=== PATIENT | female | born 1965 | race Caucasian/White ===

== ENCOUNTER 2017-08-20 12:57 | Emergency (ER) | payer BC ==
[2017-08-20 14:32] VITALS: BP 120/77
[2017-08-20] MEDS ORDERED: Lidocaine 2% PF * 5 ML VIAL INJ ONE (15:09)
[2017-08-20] MEDS ORDERED: Tetan/Diph/Pertus SYR(Tdap)* 0.5 ML SYR(BOOSTRIX) use SYR IM ONE (15:10)
--- NOTE | 2017-08-20 15:49 | UC ---
Laceration HPI - HPI Summary HPI Summary: Pt presents with laceration to left hand sustained earlier today when taking out the garbage. There was glass at the bottom that sliced her left palm. She is unsure when her last tetanus was. She applied pressure and came directly to . - History Of Current Complaint Chief Complaint: UCLaceration Stated Complaint: HAND LACERATION Time Seen by Provider: 08/20/17 15:10 Hx Obtained From: Patient Hx Last Menstrual Period: 07/09/18 Laceration Location: Hand Mechanism Of Injury: Sharp Trauma Onset/Duration: Sudden Onset Severity: Moderate Pain Intensity: 4 Pain Scale Used: 0-10 Numeric - Allergies/Home Medications Allergies/Adverse Reactions: Allergies Allergy/AdvReac Type Severity Reaction Status Date / Time No Known Allergies Allergy Verified 08/20/17 14:28 PMH/Surg Hx/FS Hx/Imm Hx Previously Healthy: Yes - Surgical History Surgical History: Yes Surgery Procedure, Year, and Place: SKIN CANCER (LEG, STOMACH, SHOULDER) - Family History Known Family History: Positive: Unknown - Social History Occupation: Employed Full-time Lives: With Family Alcohol Use: Occasionally Substance Use Type: None Smoking Status (MU): Never Smoked Tobacco - Immunization History Most Recent Tetanus Shot: Unknown Review of Systems Constitutional: Negative Skin: Other - Laceration to left hand Respiratory: Negative Cardiovascular: Negative Gastrointestinal: Negative Neurovascular: Negative Neurological: Negative Psychological: Negative All Other Systems Reviewed And Are Negative: Yes Physical Exam Triage Information Reviewed: Yes Appearance: Well-Appearing, No Pain Distress, Well-Nourished Vital Signs: Initial Vital Signs Temp 98.8 F 08/20/17 14:28 Pulse 69 08/20/17 14:28 Resp 18 08/20/17 14:28 BP 120/77 08/20/17 14:28 Pulse Ox 98 08/20/17 14:28 Vital Signs Reviewed: Yes Respiratory: Positive: Lungs clear, Normal breath sounds, No respiratory distress, No accessory muscle use Cardiovascular: Positive: RRR, No Murmur, Pulses Normal - Left radial and ulnar , Brisk Capillary Refill - Left hand and all fingers Musculoskeletal: Positive: Strength Intact - Left hand and all fingers, ROM Intact - Left hand and all fingers Neurological: Positive: Alert, Other: - Sensations intact left hand and all fingers Psychological: Positive: Age Appropriate Behavior Skin: Positive: Other - 2.0cm linear laceration to left thenar region. No tendon involvement. No FBs. Laceration Repair - Laceration Repair 1 Description: Linear Laceration Size After Repair: Length (cm) - 2.0 Type Injection: Local Anesthesia Used: 2.0% Lido Irrigation With Pressure Irrigation Device: Yes Closure Material: Sutures - Six 5-0 Closure Method: Single Layer Suture Of: Skin Suture Type: Nylon Laceration Course/Dx - Course/Dx Course Of Treatment: A time out was performed, witnessed, and signed. The area was irrigated with 100mL sterile saline. 3mL of 2% lidocaine without epi was administered and good anesthetization was achieved. An Iodine swab was used to cleanse the area. In the usual sterile fashion, SIX 5-0 nylon sutures were placed. The wound was bandaged with telfa and tegaderm. Pt tolerated procedure well. - Differential Dx - Laceration/Wound Provider Diagnoses: 2.0cm laceration to left thenar region hand Discharge - Discharge Plan Condition: Stable Disposition: HOME Patient Education Materials: Care For Your Stitches (DC), Laceration (DC) Referrals: Chris Cardona MD [Primary Care Provider] - Additional Instructions: If you develop a fever, shortness of breath, chest pain, new or worsening symptoms - please call your PCP or go to the ED. 1) Please keep the area bandaged, clean, dry, and intact for the next 24- 48hours. 2) If you develop a fever, colored or thick discharge, increased pain or swelling - please call your PCP or go to the ED. 3) Please return in 10-14 days to have your SIX sutures removed.
== END 2017-08-20 16:00 | disposition home or self-care (01) ==
LOC: UCEAST 12:57
DX: S61.412A Laceration without foreign body of left hand, initial encounter (principal); W25.XXXA Contact with sharp glass, initial encounter; Y93.E9 Activity, other interior property and clothing maintenance; Y92.9 Unspecified place or not applicable
CPT/HCPCS: 12002; 90471; 90715; 99211; G0463

== ENCOUNTER 2017-08-30 09:44 | Emergency (ER) | payer BC ==
[2017-08-30 09:55] VITALS: BP 126/72
--- NOTE | 2017-08-30 10:08 | UC ---
Laceration HPI - HPI Summary HPI Summary: Pt presents for suture removal. She was seen 10 days ago and six suture were placed by me in her left hand. Today site looks well healed with good approximation. She states that she had no issues - History Of Current Complaint Hx Obtained From: Patient Hx Last Menstrual Period: NA Laceration Location: Hand Pain Intensity: 0 <Thomas Moreno - Last Filed: 08/30/17 10:16> <Tracey Liu - Last Filed: 08/30/17 10:49> - History Of Current Complaint Chief Complaint: UCLaceration Stated Complaint: STITCH REMOVAL Time Seen by Provider: 08/30/17 10:01 - Allergies/Home Medications Allergies/Adverse Reactions: Allergies Allergy/AdvReac Type Severity Reaction Status Date / Time No Known Allergies Allergy Verified 08/30/17 09:55 PMH/Surg Hx/FS Hx/Imm Hx Previously Healthy: Yes - Surgical History Surgical History: Yes Surgery Procedure, Year, and Place: SKIN CANCER (LEG, STOMACH, SHOULDER). Breast reduction 2013 - Family History Known Family History: Positive: Unknown - Social History Occupation: Employed Full-time Alcohol Use: Occasionally Alcohol Amount: 2-3 per week Substance Use Type: None Smoking Status (MU): Never Smoked Tobacco - Immunization History Most Recent Tetanus Shot: Unknown <Thomas Moreno - Last Filed: 08/30/17 10:16> Review of Systems Constitutional: Negative Skin: Other - Six sutures in place left hand Neurovascular: Negative Musculoskeletal: Negative Neurological: Negative Psychological: Negative All Other Systems Reviewed And Are Negative: Yes <Thomas Moreno - Last Filed: 08/30/17 10:16> Physical Exam Triage Information Reviewed: Yes Appearance: Well-Appearing, No Pain Distress, Well-Nourished Vital Signs: Initial Vital Signs Temp 98.3 F 08/30/17 09:51 Pulse 70 08/30/17 09:51 Resp 16 08/30/17 09:51 BP 126/72 08/30/17 09:51 Pulse Ox 99 08/30/17 09:51 Vital Signs Reviewed: Yes Neck: Positive: Supple, No Lymphadenopathy Respiratory: Positive: Lungs clear, Normal breath sounds, No respiratory distress, No accessory muscle use Cardiovascular: Positive: RRR, No Murmur, Pulses Normal - Left radial and ulnar , Brisk Capillary Refill - Left hand and all fingers Musculoskeletal: Positive: Strength Intact - Left hand, ROM Intact - Left hand, No Edema - Left hand Neurological: Positive: Alert, Other: - Sensations intact left hand and all fingers Psychological: Positive: Age Appropriate Behavior Skin: Positive: Other - Six sutures in place left thenar region. Good skin approximation. No streaking, drainage, bleeding, or edema. <Thomas Moreno - Last Filed: 08/30/17 10:16> Vital Signs: Initial Vital Signs Temp 98.3 F 08/30/17 09:51 Pulse 70 08/30/17 09:51 Resp 16 08/30/17 09:51 BP 126/72 08/30/17 09:51 Pulse Ox 99 08/30/17 09:51 <Tracey Liu - Last Filed: 08/30/17 10:49> Laceration Course/Dx - Course/Dx Course Of Treatment: Six sutures removed without difficulty. Pt tolerated well - Differential Dx - Laceration/Wound Provider Diagnoses: Suture removal (6) <Thomas Moreno - Last Filed: 08/30/17 10:16> Discharge <Thomas Moreno - Last Filed: 08/30/17 10:16> <Tracey Liu - Last Filed: 08/30/17 10:49> - Discharge Plan Condition: Stable Disposition: HOME Patient Education Materials: Stitches Removal (ED) Referrals: Chris Cardona MD [Primary Care Provider] - Additional Instructions: If you develop a fever, shortness of breath, chest pain, new or worsening symptoms - please call your PCP or go to the ED. Attestation Statement User Type: Provider - I was available for consult. This patient was seen by the NEHAL. The patient was not presented to, seen by, or examined by me. Ljj <Tracey Liu - Last Filed: 08/30/17 10:49>
== END 2017-08-30 10:16 | disposition home or self-care (01) ==
LOC: UCEAST 09:44
DX: S61.412D Laceration without foreign body of left hand, subsequent encounter (principal); X58.XXXD Exposure to other specified factors, subsequent encounter; Y92.9 Unspecified place or not applicable
CPT/HCPCS: 99211; G0463

== ENCOUNTER 2019-03-04 08:41 | Day surgery (SDC) | payer BC ==
--- NOTE | 2019-02-15 11:06 | HP ---
PREOPERATIVE HISTORY AND PHYSICAL: DATE OF SURGERY: 03/04/19 [facility] ATTENDING PHYSICIAN: Dr. Paulette Vaughn.* (DICTATED BY PEGGY CONTRERAS) PROCEDURES: Left shoulder decompression, debridement, excision of distal clavicle, possible arthroscopic rotator cuff repair, and subpectoral biceps tenodesis. CHIEF COMPLAINT: Left shoulder pain. HISTORY OF PRESENT ILLNESS: The patient is a 53-year-old female who presents complaining of left shoulder pain due to rotator cuff tear and biceps tendonitis. She has failed conservative measures and therefore agreed to undergo a left shoulder decompression, debridement, excision of distal clavicle , possible arthroscopic rotator cuff repair, possible subpectoral biceps tenodesis with Dr. Vaughn on 03/04/19. PAST MEDICAL HISTORY: Skin cancer and herpes. PAST SURGICAL HISTORY: Breast reduction. The patient denies prior complications with anesthesia. She did have some nausea and vomiting afterwards. MEDICATIONS: 1. Valacyclovir 500 tabs 1 by mouth twice a day x3 days as needed for exacerbation. 2. Estradiol 1 by mouth every day for hot flashes. 3. Medroxyprogesterone acetate 10 mg 1 by mouth daily for hot flashes. ALLERGIES: No known drug allergies. FAMILY HISTORY: Positive for skin cancer. Denies family history of DVT or PE. SOCIAL HISTORY: She lives alone. She is a director at [employer]. She denies tobacco use. She reports occasional alcohol consumption. She is right-hand dominant. REVIEW OF SYSTEMS: A 14-point review of systems was reviewed with the patient. Positive for current complaint, otherwise negative. Denies fever, chills, chest pain, shortness of breath, history of bleeding disorder, history of DVT or PE. PHYSICAL EXAMINATION GENERAL: A 53-year-old well-developed, well-nourished female, in no acute distress. VITAL SIGNS: Height 56, weight 186. Blood pressure 118/64, respiratory rate 18. BMI 30.0. HEENT: Normocephalic, atraumatic. PERRLA. Throat clear. NECK: Supple. PULMONARY: Lungs clear to auscultation bilaterally. No wheezing, rhonchi, or rales. CARDIO: Regular rate and rhythm. S1 and S2. No murmurs, gallops, or rubs. No edema. ABDOMEN: Positive bowel sounds, soft, nontender. MUSCULOSKELETAL: Left upper extremity: Skin is intact. No warmth or erythema. Forward flexion to 135, abduction 140, external rotation 50. Pain with cross body testing. +4/5 strength to rotator cuff testing with pain. Positive impingement - Speed, Arnold-Israel, and Maverick. +2 radial pulse. Sensation is intact to light touch distally. NEURO: Alert and oriented x3. Cranial nerves grossly intact. DIAGNOSTIC STUDIES: MRI revealed a high-grade partial-thickness tear of the supraspinatus tendon, biceps tendinosis. The subscap is intact with AC joint arthrosis and mild glenohumeral changes. IMPRESSION: Left shoulder rotator cuff tear and biceps tendonitis. PLAN: The patient is scheduled to undergo a left shoulder decompression, debridement, excision of distal clavicle, possible arthroscopic rotator cuff repair, and possible subpectoral biceps tenodesis with Dr. Vaughn on 03/04/19. She will follow up in 10 to 14 days postop for followup and suture removal. Percocet will be used for postop pain management. PEGGY CONTRERAS [id number]/[facility] #: [id number] [id number]
[~2019-03-04 08:41] MED LIST: Buffered Lidocaine 1% SYRIN* 1 ML/SYRINGE INTRADERM ONE; Bupivacaine 0.25% SDV* 30 ML ONE; Dexamethasone TAB* 4 MG ONE; Dexamethasone TAB* 4 MG PO ONE; DiMENhydriNATE IV* 50 MG/ML VIAL IV PUSH PRN; Famotidine IV* 10 MG/ML 2 ML (20 mg) IV ONE; Famotidine IV* 10 MG/ML 2 ML (20 mg) ONE; HYDROmorphone INJ1* 1 MG/ML SYRINGE IV PRN; KETAMINE HCL* 50 MG/ML 10 ML VIAL ONE; Lactated Ringers 1000 ML Bag* 1,000 ML IV SCH; Midazolam* 1 MG/ML 5 ML VIAL (5 MG) ONE; Naloxone* 0.4 MG/ML 1 ML VIAL IV PRN; Ondansetron ODT TAB* 4 MG ONE; Ondansetron ODT TAB* 4 MG PO ONE; PROCHLORPERAZINE INJ 5 MG/ML 2 ML VIAL IV PRN; Scopolamine 1.5 mg* PATCH TRANSDERM SCH; Scopolamine PATCH Remove* 1 NOTE MISC PATCH OFF SCH; ceFAZolin 2 GM in NS PREMIX(*) 0 GM/0 ML BAG IVPB ONE; fentaNYL* 50 MCG/ML 2 ML VIAL (100 MCG VIAL) IV PRN; fentaNYL* 50 MCG/ML 2 ML VIAL (100 MCG VIAL) ONE; oxyCODONE/Acetamin 5/325 MG* TAB PO PRN
[2019-03-04] MEDS ORDERED: ceFAZolin 2 GM in NS PREMIX(*) 2 GM/100 ML BAG IVPB ONE (08:54)
[2019-03-04] MEDS ORDERED: Scopolamine 1.5 mg* PATCH ONE (09:14)
[2019-03-04] MEDS ORDERED: Ropivacaine 0.2% * 2 MG/ML VIAL ONE (10:12)
[2019-03-04] MEDS ORDERED: Lidocaine 2% PF * 5 ML VIAL ONE (10:53)
[2019-03-04] MEDS ORDERED: Ketorolac INJ* 30 MG/ML 1 ML VIAL ONE (10:53)
[2019-03-04] MEDS ORDERED: PROCHLORPERAZINE INJ 5 MG/ML 2 ML VIAL ONE (10:53)
[2019-03-04] MEDS ORDERED: Propofol* 10 MG/ML 20 ML BTL ONE (10:53)
[2019-03-04] MEDS ORDERED: fentaNYL* 50 MCG/ML 2 ML VIAL (100 MCG VIAL) ONE (12:09)
[2019-03-04] MEDS ORDERED: oxyCODONE/Acetamin 5/325 MG* TAB ONE (12:35)
[2019-03-04 13:07] VITALS: BP 136/97
--- NOTE | 2019-03-04 20:47 | OP ---
CC: PCP, Chris Cardona MD * DATE OF OPERATION: 03/04/19 [facility] DATE OF : 61 SURGEON: Paulette Vaughn MD. PHYSIOLOGIST: PEGGY Yanes. An marketing assistant was needed for the entirety of the case to help with positioning, retraction, and was utilized throughout all portions of the case. ANESTHESIOLOGIST: Dr. Claudio. ANESTHESIA: General, interscalene block. PRE-OP DIAGNOSES: Left shoulder acromioclavicular joint arthritis and partial thickness tear of the rotator cuff. POST-OP DIAGNOSES: Left shoulder acromioclavicular joint arthritis and partial thickness tear of the rotator cuff. OPERATIVE PROCEDURES: Left shoulder arthroscopy with: 1. Extensive glenohumeral debridement. 2. Subacromial decompression with acromioplasty. 3. Distal clavicle excision. 4. Rotator cuff repair using Regeneten patch. 5. Open biceps tenodesis. COMPLICATIONS: None. ESTIMATED BLOOD LOSS: Minimal. IMPLANTS: 1. Regeneten patch, size medium. 2. Q-Fix 2.8 mm. INDICATIONS: Coral Branch is a 53-year-old female who has had persistent shoulder pain for 10 years. She was initially being treated for her neck. She has undergone AC joint as well as subacromial injections. She had a MRI that was done in 2017 that demonstrated partial thickness tearing and downward sloping of the acromion. After extensive discussion, the risks and benefits were discussed at length and included but are not limited to bleeding; infection ; damage to nerves, vessels, surrounding structures; wound nonhealing; persistent pain; need for surgery; scarring; stiffness; incomplete relief of symptoms; and risks of anesthesia. DESCRIPTION OF PROCEDURE: The patient was greeted in the preoperative area by the attending surgeon. Correct extremity was marked. Consent was confirmed. The patient underwent interscalene nerve block after which she was brought back to the operating suite, placed in the supine position on the operating table and underwent general anesthesia and LMA intubation, after which she was appropriately positioned in the right lateral decubitus position. All bony prominences were padded. She was secured with a pegboard. The left shoulder was draped unsterile with 10 pounds traction. The left shoulder was prepped and draped in the usual sterile fashion beginning with chlorhexidine soap, scrub , and alcohol wipe and a final prep with ChloraPrep. After appropriate surgical pause indicating site, side, procedure, administration of antibiotics, the standard posterolateral portal was made sharply with an 11 blade. The scope was then introduced into the joint. The joint was examined, there were grade 0 to 1 changes in the glenohumeral joint. There was obvious type 2 SLAP tear with unstable biceps. There was evidence of partial thickness tearing of the rotator cuff. The inferior recess was intact. There was synovitis. The subscap was intact. The biceps was then tenotomized for later tenodesis. The undersurface of the rotator cuff was debrided back using a shaver. Once the debridement was complete, attention was directed to the subacromial space. With the scope positioned in the subacromial space, the lateral portal was made in an outside-in fashion. A shaver was used to debride back the abundant bursa that was present. The undersurface of the acromion had a large anterior irregular acromial spur. The acromion was skeletonized using electrocautery device. The 4-0 oval nathaniel was then used to do an acromioplasty to remove the large osteophyte inferiorly. This was taken back to the AC joint. Once it was done appropriately, the bone spur was removed, attention was directed to the AC joint. The nathaniel was brought through the anterior portal. The distal 8 mm of the clavicle was debrided back using the 4-0 oval nathaniel. Care was taken to prevent damage to the CC ligaments. This was a very stenotic joint. Once this was complete, attention was directed to the rotator cuff. All loose debris was removed. The shaver was used again to remove any loose debris. The cuff was then visualized and found to have a partial thickness tearing on the bursal side, which is moderate to high grade. Decision was made to treat this with a Regeneten patch. A size medium Regeneten patch was then brought to the field and placed under arthroscopic visualization. Through a separate stab incision, a cannula was placed and the tendon seema were then placed with good purchase. Once it was secured, the lateral aspect was secured to the bone with PEEK seema. Final images were obtained. The wounds were then copiously irrigated. Attention was directed to the biceps. The bed was airplaned to the left side, the anterior aspect of the shoulder was prepped again using ChloraPrep. The 15-blade was used to make an incision in line with the biceps tendon. The soft tissues were carefully dissected to expose the pec fascia. Remainder of the dissection was done bluntly. The biceps was then visualized and brought through the wound and found to have abundant synovitis. The groove was then prepared in the usual fashion using electrocautery device, red ball rasp, and osteotome. The Q-Fix was then drilled and placed unicortically with excellent purchase. The sutures were then passed through the tendon approximately 1 cm proximal to the musculotendinous junction in a Anshu-Thiago type configuration. The excess biceps was excised and then the sutures were tied down and secured. The wounds were then copiously irrigated with sterile saline. The portals were closed with 3-0 nylon. The anterior wound was closed in layers with 2-0 Monocryl. Sterile dressings were applied. Cryo/cuff and UltraSling were applied. She was awoken from anesthesia and transferred to the PACU in stable condition. POSTOPERATIVE PLAN: She will be discharged on pain medication. DVT prophylaxis was considered but deferred due to no previous or personal family history. I will see the patient back in 10 to 14 days. [id number]/[facility] #: [id number] KRISTIE
== END 2019-03-04 13:29 | disposition home or self-care (01) ==
LOC: OREAST 08:41
PROVIDERS: ATTEND Orthopaedic Surgery
DX: M75.112 Incomplete rotator cuff tear or rupture of left shoulder, not specified as traumatic (principal); M75.22 Bicipital tendinitis, left shoulder; Z85.828 Personal history of other malignant neoplasm of skin; M19.012 Primary osteoarthritis, left shoulder; G89.18 Other acute postprocedural pain
CPT/HCPCS: 81025; A9270-GY; C1713; C1776; J0690; J0780; J1885; J2250; J2704; J2795; J3010; J3490; J8540